=== PATIENT | female | born 1950 | race Caucasian/White ===

== ENCOUNTER 2018-06-16 17:07 | Inpatient (IN) ==
[2018-06-16] MEDS ORDERED: LANOXIN IV ONE (17:15)
[2018-06-16 18:01] LABS: HEMATOCRIT 39.2 % (37.0-47.0); HEMOGLOBIN 12.9 g/dL (12.0-16.0); MCH 30.6 PG (27-31); MCHC 32.9 g/dL (33-37); MCV 92.9 FL (81-99); MPV 10.7 FL (7.4-10.4); RBC 4.22 XMIL (4.2-5.4); RDW 14.1 % (11.5-14.5); WBC 8.09 X1000 (4.8-10.8)
[2018-06-16 18:08] LABS: INR 1.02; PROTIME 14.3 Seconds (11.0-16.0)
[2018-06-16 18:23] LABS: AGAP 14; ALB/GLOB RATIO 1.7; ALBUMIN 3.8 g/dL (3.5-5.0); ALKALINE PHOSPHATASE 86 U/L (32-104); BUN 12 mg/dL (8-22); CALCIUM 8.6 mg/dL (8.8-10.2); CHLORIDE 107 mmol/L (98-107); CK PROFILE 55 U/L (24-173); COSMO 285; CREATININE 0.7 mg/dL (0.5-0.9); ESTIMATED GFR > 60; GLUCOSE 96 mg/dL (70-104); GOT 33 U/L (10-30); GPT 37 U/L (10-36); MAGNESIUM 1.7 mg/dL (1.5-2.7); POTASSIUM 3.5 mmol/L (3.5-5.1); SODIUM 143 mmol/L (136-145); TCO2 22 mmol/L (25-35); TOTAL BILIRUBIN 1.75 mg/dL (0.20-1.00); TOTAL PROTEIN 6.1 g/dL (6.3-8.3)
[2018-06-16] MEDS: ELIQUIS PO SCH ×3 (19:26→22:48)
[2018-06-16] MEDS: CARDIZEM PO SCH (19:26)
[2018-06-16] MEDS: ATIVAN IV PRN (19:27)
--- NOTE | 2018-06-16 19:36 | Diag Imaging Result Doc PS360 ---
EXAM: CHEST-2 VIEWS HISTORY: SOB TECHNIQUE: Chest two views COMPARISON: None. FINDINGS: The lungs are well expanded. The heart is mildly enlarged. There is pulmonary edema. No consolidation. Trace pleural fluid. IMPRESSION: Findings consistent with congestive failure. Electronically signed by Matt Snider 06/16/2018 7:35 PM
--- NOTE | 2018-06-16 21:20 | HISTORY AND PHYSICAL ---
CHIEF COMPLAINT: Shortness of breath, cough, wheezing, nausea for the last 1 week. HISTORY OF PRESENT ILLNESS: She is 67-year-old, pleasant, white female who came into the office with above symptoms. Heart rate is very irregular, somewhat new. EKG shows atrial flutter with rapid ventricular response. Chest x-ray, cardiomegaly with CHF. Admitted in [facility]. Discussed with Dr. Whitehead. She also has swelling of feet. Apparently all the symptoms was started after stopping the hormone treatment for breast cancer, exemestane. PAST MEDICAL HISTORY: Aortic stenosis due to bicuspid aortic valve, bladder cancer in remission, breast cancer on the right side status post local excision, ductal carcinoma in situ followed by hormonal treatment, metabolic syndrome, hypertension, osteopenia, posttraumatic stress disorder. PAST SURGICAL HISTORY: Radical cystectomy with Tiera pouch, appendectomy, cholecystectomy, complete hysterectomy. MEDICATIONS: Coreg 3.125 p.o. b.i.d., recently stopped exemestane 25 mg once daily, ibandronate sodium 150 mg once a month, Lexapro 20 mg daily, Zofran as needed. ALLERGIES: Not known. SOCIAL HISTORY: . Two kids. Lives in [place]. No smoking. No alcohol. FAMILY HISTORY: Father of MD at 68. Mom of lymphoma cancer. HEALTH SCREENING: Refused. Last mammography March 2016. Pap smear complete hysterectomy. Colonoscopy November 2015 at [place] with hyperplastic polyps. REVIEW OF SYSTEMS: HEENT: No headache. No vision problem. No earache. No sore throat. Cardiopulmonary: No chest pain. Shortness of breath, cough, wheezing, palpitations, swelling of feet. GI: History of nausea. No abdominal pain. : Had [place] pouch, self catheterization. No lumps in the breast. Extremities: Swelling of feet. Neurologic: No neurological symptoms or weakness. PHYSICAL EXAMINATION: VITAL SIGNS: Temperature is 98 degrees, heart rate is 150, blood pressure is running high, 5 feet 2, 210 pounds, room air 94%. HEENT: Atraumatic, normocephalic. Pupils equal, react to light. TMs are normal. Nose and throat within normal limits. NECK: Supple. No lymphadenopathy. CHEST: Bilateral wheezing. HEART: Sounds very erratic. ABDOMEN: Belly is soft, obese, nontender. [place] pouch seen with granulation tissue. EXTREMITIES: 1+ pedal edema. NEUROLOGIC: No obvious neurological deficits noted. INVESTIGATIONS: CBC is normal. PT/INR is normal. SMA 7 is normal. Calcium 8.6, magnesium 1.7. LFTs were slightly elevated. ProBNP 896. Cardiac enzymes, thyroid function tests were normal. Chest x-ray, cardiomegaly, mild CHF. EKG in my office revealed atrial flutter and fibrillation. ASSESSMENT AND PLAN: 1. A 67-year-old white female admitted to the hospital with decompensated diastolic heart failure with underlying aortic stenosis presumed to be bicuspid along with atrial fibrillation new onset. Plan is to CIC, IV digoxin, Cardizem. 2. Vitamin D3 deficiency, on replacement therapy. 3. Anxiety and depression. We will use the Lexapro and Ativan as needed. 4. Consult with crusher foreman. 5. History of bladder cancer in remission. 6. History of right breast cancer in remission, off hormone treatment. 7. Osteopenia, on Actonel. 8. Hypertension, on Coreg 3.125 p.o. b.i.d. Peak velocity of aortic valve 2.29 cm. LV function is 70%. Appears to be bicuspid eccentric regurgitation. Discussed with Dr. Whitehead. We will follow up. cc: Rosendo Estrella MD
[2018-06-17] MEDS: CARDIZEM PO SCH ×4 (01:05→20:43)
--- NOTE | 2018-06-17 07:27 | EKG Report ---
Test Performed on : 06/17/2018 06:46:40 AM Test Reason : atrial flutter Blood Pressure : / mmHG Vent. Rate : 104 BPM Atrial Rate : 357 BPM P-R Int : 000 ms QRS Dur : 072 ms QT Int : 346 ms P-R-T Axes : 000 038 066 degrees QTc Int : 454 ms Atrial fibrillation. with rapid ventricular response. Possible Anterior infarct (cited on or before 01-SEP-2014) Abnormal ECG When compared with ECG of 16-JUN-2018 16:51, (Unconfirmed) No significant change was found Confirmed by Edyta MANE, Conrteras Mcclendon ([id number]) on 06/20/2018 7:12:36 AM
--- NOTE | 2018-06-17 07:36 | EKG Report ---
Test Performed on : 06/16/2018 4:51:01 PM Test Reason : chest pain Blood Pressure : / mmHG Vent. Rate : 154 BPM Atrial Rate : 197 BPM P-R Int : 000 ms QRS Dur : 072 ms QT Int : 300 ms P-R-T Axes : 000 045 024 degrees QTc Int : 480 ms Atrial fibrillation. with rapid ventricular response. Possible Anteroseptal infarct (cited on or before 01-SEP-2014) Abnormal ECG When compared with ECG of 01-SEP-2014 15:51, Atrial fibrillation. has replaced Sinus rhythm. Vent. rate has increased BY 75 BPM Questionable change in initial forces of Anteroseptal leads Confirmed by Edyta MANE, Contreras Mcclendon ([id number]) on 06/17/2018 11:01:41 AM
--- NOTE | 2018-06-17 08:55 | CARDIOLOGY CONSULTATION ---
DATE: 06/17/2018 CHIEF COMPLAINT: Palpitations, shortness of breath, swelling. HISTORY: Ms. Altamirano is a 67-year-old female who presented to 's office, about 10 days in the office, complaining of nausea and vomiting. The patient stated back then that she had discontinued her hormonal blocking therapy prescribed by [facility] for management of breast cancer. The patient at that time was suspected to be dehydrated and was managed conservatively. Then she represented again yesterday with complaints of feeling weak, fatigued, exhausted and having some palpitations. Dr. Estrella noted that the patient was tachycardic with an irregular heartbeat, diagnosed atrial fibrillation with rapid response and recommended admission to the hospital. The patient at this time has been given IV Digoxin one time and has been placed on IV Digoxin once a day and apixaban 5 mg twice a day and Diltiazem 60 every 6 hours. Her EKG this morning shows atrial fibrillation, rate is 104 beats per minute with no ischemic changes. The patient denies having chest pain. PAST HISTORY: Positive for tachycardia for many years. The patient says that she has been found to have some valve disease. She mentions leaky valve, mitral valve prolapse. She says that she had scarlet fever as a child. She does have hypertension. She has posttraumatic stress disorder. SURGICAL HISTORY: She has had radical cystectomy with reconstruction of the urinary tract and an ostomy in 1995 or 1996. She said that was a very traumatic experience. She has had appendectomy, cholecystectomy. She has had hysterectomy. She has been diagnosed with breast cancer and she is being followed by [facility]. She had been taking hormonal blocking agents until recently. ALLERGIES: She has no allergies. SOCIAL HISTORY: She is . She has had 2 children, ages 37 and 40. She has been for 45 years. 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 Neither a smoker or a drinker. FAMILY HISTORY: Father had myocardial infarction. Mother had a stroke. REVIEW OF SYSTEMS: The patient does snore. She does have episodes of apnea at night when she sleeps. Her is familiar with the diagnosis of sleep apnea syndrome. No other major positives. HOME MEDICATIONS: At the time of this dictation included 1. Calcium carbonate. 2. Carvedilol 3.125 twice a day. 3. Cholecalciferol 1000 units daily. 4. Lexapro 20 mg daily. 5. Boniva 1 tablet as directed. PHYSICAL EXAMINATION: VITAL SIGNS: Blood pressure 128/105, pulse 104, respirations 24, temperature 97.6 degrees. GENERAL: She is awake, alert, oriented, no distress. Obese. HEENT: Unremarkable. CHEST: Diminished breath sounds diffusely without wheezes. HEART: Sounds are irregularly irregular. At this time, no gallop or murmur noted. ABDOMEN: Obese, nontender. EXTREMITIES: Show good pulses. No peripheral edema. NEUROLOGICAL: Follows commands. Moves 4 extremities. BLOOD WORK: Hemoglobin is 12.9, hematocrit 39.2, white cell count 8,090. PT 14.3. Sodium 143, potassium 3.5, BUN 12, creatinine 0.7. ProBNP 896 ng/mL. TSH is normal. Chest x- ray done yesterday showed findings consistent with congestive heart failure. Trace pleural fluid. IMPRESSION: 1. Patient presenting with atrial fibrillation and rapid ventricular response. This seems to be a new finding according to Dr. Estrella's office although patient states that she has had "tachycardia" for many years. 2. Morbid obesity. 3. Suspected to have sleep apnea syndrome. 4. Congestive heart failure probably diastolic dysfunction. 5. History of posttraumatic stress disorder with connection to her previous abdominal surgery. 6. She has a history of resection of bladder cancer and also has history of breast cancer. RECOMMENDATIONS: At this point in time, we will add Sotalol 80 mg twice a day. Continue Eliquis. We will see how she does over the next few days and if she does not convert spontaneously, we may consider TE cardioversion. I would request an echocardiogram for our records. The last echo was done by Dr. Estrella according to him about 2 months ago and it showed some abnormality. cc: MD Rosendo Funez MD [facility]
[2018-06-17] MEDS: CALTRATE 600 + D PO SCH (09:11)
[2018-06-17] MEDS: VITAMIN D PO SCH (09:11)
[2018-06-17] MEDS: LEXAPRO PO SCH (09:11)
[2018-06-17] MEDS: ELIQUIS PO SCH ×2 (09:12→20:43)
[2018-06-17] MEDS: BETAPACE PO SCH ×2 (09:12→20:43)
[2018-06-17] MEDS: ALDACTONE PO SCH (09:12)
[2018-06-17] MEDS: LANOXIN IV SCH (09:12)
[2018-06-17] MEDS ORDERED: ZOFRAN IV PRN (19:28)
[2018-06-18] MEDS: CARDIZEM PO SCH ×4 (02:40→20:12)
--- NOTE | 2018-06-18 05:28 | ECHO REPORT ---
ORDER DATE: 06/17/2018 INDICATION: Atrial fib. FINDINGS: 1. The right atrium appears normal size. 2. Trace tricuspid regurgitation and RV systolic pressure of 32. 3. Normal RV size and systolic function. 4. No significant pulmonic insufficiency. 5. Normal left atrial size with a dimension of 3.6 cm. 6. No mitral prolapse. Mild mitral regurgitation. 7. Normal LV size, end-diastolic dimension of 4.7 cm. Normal wall thicknesses with a posterior and interventricular septal wall thickness of 1.1 and 1.0 cm respectively. The patient appears to be in atrial fibrillation with rates in the 110s to 120s, making the ejection fraction estimate difficult, but it does appear to be greater than 55%. 8. Aortic valve opens well. No evidence of stenosis or insufficiency. 9. Aorta appears normal in visualized segments. 10. No pericardial effusion seen. cc: MD Anam Madrigal MD Jagan Reddy, MD
--- NOTE | 2018-06-18 06:44 | PROGRESS NOTE ---
DATE: 06/17/2018 SUBJECT: Appreciate Dr. Whitehead's consult. The patient is very anxious. Continues to have atrial fibrillation, shortness of breath, and swelling of feet. REVIEW OF SYSTEMS: None reported. OBJECTIVE: Vitals: Temperature is 98 degrees, pulse is 68, blood pressure is stable. 2 L nasal cannula 95%. HEENT: Within normal limits. Chest: Bilateral air entry, distant breath sounds. Heart: Irregular heartbeat. Abdomen: Soft, obese, nontender. Extremities: 1+ pedal edema. ASSESSMENT AND PLAN: 1. A 67-year-old white female admitted to the hospital with rapid atrial fibrillation, with diastolic heart failure. Plan is for sotalol 80 p.o. b.i.d., continue on Eliquis. 2. If fails to improve, we will consider ERMIAS and cardioversion. 3. Aortic stenosis, mild, at the bicuspid aortic valve. Discussed with Dr. Whitehead. Cardiac enzymes were negative. Normal thyroid function tests. We will continue to monitor. LEVEL OF DOCUMENTATION: 25 minutes. cc: Rosendo Estrella MD
--- NOTE | 2018-06-18 08:05 | EKG Report ---
Test Performed on : 06/18/2018 07:19:08 AM Test Reason : atrial fibrillation Blood Pressure : / mmHG Vent. Rate : 085 BPM Atrial Rate : 076 BPM P-R Int : 000 ms QRS Dur : 074 ms QT Int : 386 ms P-R-T Axes : 000 040 085 degrees QTc Int : 459 ms Atrial fibrillation. with a competing junctional pacemaker. Anteroseptal infarct (cited on or before 01-SEP-2014) Abnormal ECG When compared with ECG of 17-JUN-2018 06:46, (Unconfirmed) Questionable change in initial forces of Septal leads Confirmed by Edyta MANE, Contreras Mcclendon ([id number]) on 06/20/2018 10:17:54 AM
[2018-06-18] MEDS: ALDACTONE PO SCH (09:09)
[2018-06-18] MEDS: LEXAPRO PO SCH (09:09)
[2018-06-18] MEDS: ELIQUIS PO SCH ×2 (09:09→20:12)
[2018-06-18] MEDS: CALTRATE 600 + D PO SCH (09:09)
[2018-06-18] MEDS: VITAMIN D PO SCH (09:09)
[2018-06-18] MEDS: BETAPACE PO SCH ×2 (09:10→20:12)
[2018-06-18] MEDS: LANOXIN IV SCH (09:10)
[2018-06-18] MEDS: ATIVAN IV PRN ×2 (09:18→20:12)
--- NOTE | 2018-06-18 09:37 | CARDIOLOGY PROGRESS NOTE ---
DATE: 06/18/2018 CHIEF COMPLAINT: Irregular heartbeat, shortness of breath. SUBJECTIVE: Mrs. Altamirano feels better today. She is up and about. Her heart rate is better controlled on current medicines. She denies having any chest pain. OBJECTIVE: Vital signs: Blood pressure is 131/61, temperature 97.6, pulse 72, respirations 15. General: She is awake, alert, in no distress. HEENT: Unremarkable. Chest: Clear to auscultation and percussion. Cardiac: Heart sounds are irregularly irregular. Abdomen: Nontender. Extremities: Show no edema. Neurological: Moves all 4 extremities. BLOOD WORK: Has not been done today. IMPRESSION: 1. Patient who has atrial fibrillation, presumably of new onset, rapid response. 2. Suspect sleep apnea syndrome. 3. Morbid obesity, body mass index 44.4. 4. Hypertension. RECOMMENDATION: We will proceed with ERMIAS cardioversion in the morning. Benefits, risks, complications discussed. The patient understands that she has to be put to sleep and that we also need to check electrolytes in the morning prior to proceeding with the cardioversion. An echocardiogram was done yesterday, shows a normal ejection fraction of the left ventricle with no significant valvular abnormality. Will follow her along. cc: MD Rosendo Funez MD
[2018-06-19] MEDS: CARDIZEM PO SCH ×4 (03:02→21:00)
--- NOTE | 2018-06-19 04:52 | PROGRESS NOTE ---
DATE: 06/18/2018 SUBJECTIVE: The patient is a little bit upset not getting the blood workup. She continues to have atrial fibrillation rate when controlled. Dr. Whitehead has scheduled for ERMIAS and cardioversion tomorrow. REVIEW OF SYSTEMS: None reported. OBJECTIVE: Vital signs: Temperature is 98 degrees. Vitals are stable. HEENT: Within normal limits. Neck: Supple. Chest: Clear. Heart: Distant heart sounds. Regular. Abdomen: Belly is soft and nontender. No deficits noted. ASSESSMENT AND PLAN: New onset of atrial flutter with underlying aortic valve disease with aortic stenosis, questionable bicuspid valve. Plan is ERMIAS and cardioversion. Continue on sotalol. Currently, rate control with digitalis, Cardizem and sotalol. Stroke prophylaxis with Eliquis with underlying comorbid conditions. Family agreed. I appreciated Dr. Whitehead consult. We will follow up. LEVEL OF DOCUMENTATION: 25 minutes. cc: Rosendo Estrella MD
[2018-06-19 06:37] LABS: AGAP 12; BUN 11 mg/dL (8-22); CALCIUM 8.8 mg/dL (8.8-10.2); CHLORIDE 106 mmol/L (98-107); COSMO 282; CREATININE 0.7 mg/dL (0.5-0.9); ESTIMATED GFR > 60; GLUCOSE 93 mg/dL (70-104); MAGNESIUM 1.7 mg/dL (1.5-2.7); POTASSIUM 3.8 mmol/L (3.5-5.1); SODIUM 142 mmol/L (136-145); TCO2 24 mmol/L (25-35)
[2018-06-19] MEDS: BETAPACE PO SCH ×3 (07:29→21:00)
[2018-06-19] MEDS: CALTRATE 600 + D PO SCH ×2 (07:29→12:20)
[2018-06-19] MEDS: LEXAPRO PO SCH ×2 (07:29→12:21)
[2018-06-19] MEDS: VITAMIN D PO SCH ×2 (07:29→12:20)
[2018-06-19] MEDS: ELIQUIS PO SCH ×3 (07:29→21:00)
[2018-06-19] MEDS: ALDACTONE PO SCH ×2 (07:29→12:19)
[2018-06-19] MEDS: ATIVAN IV PRN (07:31)
[2018-06-19] MEDS ORDERED: XYLOCAINE-MPF 2% ONE (08:00)
[2018-06-19] MEDS ORDERED: DIPRIVAN 1% ONE (08:00)
--- NOTE | 2018-06-19 08:13 | EKG Report ---
Test Performed on : 06/19/2018 07:31:37 AM Test Reason : atrial fibrillation Blood Pressure : / mmHG Vent. Rate : 097 BPM Atrial Rate : 100 BPM P-R Int : 000 ms QRS Dur : 082 ms QT Int : 374 ms P-R-T Axes : 000 053 015 degrees QTc Int : 474 ms Atrial fibrillation. Cannot rule out Anteroseptal infarct (cited on or before 01-SEP-2014) Abnormal ECG When compared with ECG of 18-JUN-2018 07:19, (Unconfirmed) No significant change was found Confirmed by Edyta MANE, Contreras Mcclendon ([id number]) on 06/20/2018 10:49:24 AM
[2018-06-19 08:56] LABS: INR 1.1; PROTIME 15.1 Seconds (11.0-16.0)
[2018-06-19 08:57] LABS: PTT 25.6 Seconds (22.3-41.8)
[2018-06-19] MEDS ORDERED: ANESTHESIA PB SET 88 IN 5742 ONE (11:20)
[2018-06-19] MEDS ORDERED: NS 1,000 ML ONE (11:20)
[2018-06-19] MEDS ORDERED: XYLOCAINE 4% TOPICAL SOLUTION ONE (11:25)
[2018-06-19] MEDS: LANOXIN IV SCH (12:21)
--- NOTE | 2018-06-19 14:04 | CARDIAC CATH REPORT ---
DATE: 06/19/2018 PROCEDURE PERFORMED: Direct current cardioversion. INDICATION: Persistent atrial fibrillation. HISTORY: Ms. Altamirano is a 67-year-old female who presented with atrial fibrillation. This is of uncertain duration. She was placed on anticoagulant, sotalol and Cardizem, and cardioversion was recommended. ERMIAS was performed prior to the cardioversion. DESCRIPTION OF PROCEDURE: The patient came into the cardiac labor relations analyst. She received IV anesthesia under the services of Dr. Johnson. ERMIAS was performed first, and that ruled out the presence of thrombus. The pads were positioned in anterior posterior location. The patient received a single synchronized countershock to the chest cage consisting of 75 esparza per second. She converted from atrial fibrillation into sinus rhythm. She woke up from the effects of anesthesia without deficit. During the recovery phase when the patient was already awake, there was a short run of atrial tachycardia. She remained in sinus rhythm. SUMMARY: This was a successful cardioversion from atrial fibrillation into sinus rhythm. One isolated episode of atrial tachycardia was documented. RECOMMENDATIONS: The patient will be kept on sotalol, and we will follow her clinically. cc: MD Rosendo Funez MD
--- NOTE | 2018-06-19 15:25 | Transesophageal Echocardiogram ---
DATE: 06/19/2018 INDICATION: Patient with atrial fibrillation of uncertain duration. Cardioversion was recommended. DESCRIPTION: The patient was brought to the [facility] after being consented. Her throat was anesthetized with HurriCaine and viscus lidocaine. She was given IV anesthesia under the service of Dr. Johnson. Once the patient was adequately sedated the esophagus was intubated without difficulty. Multiple views of the cardiac structure were obtained. SUMMARY OF MAIN FINDINGS: 1. The left atrium and the appendage were well visualized and free of thrombus. Flow velocity within the appendage was in the order of 30-40 cm/s. A mild degree of spontaneous echo contrast was noted. 2. There is evidence of an interatrial septal aneurysm. 3. In the most posterior cephalad portion of the interatrial septum there is a patent foramen ovale with bidirectional shunt. The shunt is predominantly from left to right. However , there are also some instances of right to left shunt and injection of agitated saline showed some crossing of the bubble from the right to the left. It was intermittent and of small degree . 4. The right atrium is normal. 5. The tricuspid valve is normal. Color flow mapping is unremarkable. 6. The right ventricle is normal. 7. The pulmonic valve is normal. 8. The aortic valve is abnormal. It has only 2 cusps. It is a bicuspid valve. Valve area about 1.6 cm2. Color flow mapping of the aortic valve shows no regurgitation. The aortic root is not dilated. 9. The left ventricle shows normal function with an ejection fraction of 55%. 10.Pulmonary venous flow is normal. 11.The ascending thoracic aorta shows no evidence of any significant plaque. 12.There is no evidence of pericardial effusion or masses. SUMMARY: In summary, this transesophageal echocardiogram is negative for the presence of thrombus. It shows the presence of a bicuspid aortic valve and also the presence of a patent foramen ovale with bidirectional shunt. The patient may proceed with cardioversion at a low risk of embolic event. cc: MD Rosendo Funez MD MTDD
--- NOTE | 2018-06-20 00:07 | PROGRESS NOTE ---
DATE: 06/19/2018 SUBJECTIVE: The patient is a little bit anxious. getting IV, waiting for ERMIAS and cardioversion. No complaints. PHYSICAL EXAMINATION: Vital signs: On examination, temperature is 97 degrees, pulse is still in atrial fibrillation. Chest: Poor respiratory effort. Abdomen: Belly is soft, nontender. Extremities: Trace edema. ASSESSMENT AND PLAN: 1. Chronic atrial fibrillation. Waiting for ERMIAS and cardioversion. 2. Bicuspid aortic valve. Follow up on ERMIAS report. 3. Anticoagulation with Eliquis. 4. Consider sleep studies down the line. Waiting for the IV access prior to the ERMIAS and cardioversion. I appreciate Dr. Whitehead's consult. 5. Continue present medical therapy, and follow up on cardioversion. LEVEL OF DOCUMENTATION: 25 minutes. cc: Rosendo Estrella MD MTD[facility]
[2018-06-20] MEDS: CARDIZEM PO SCH ×2 (01:49→09:36)
[2018-06-20] MEDS: LEXAPRO PO SCH (09:36)
[2018-06-20] MEDS: ALDACTONE PO SCH (09:36)
[2018-06-20] MEDS: CALTRATE 600 + D PO SCH (09:36)
[2018-06-20] MEDS: ELIQUIS PO SCH (09:37)
[2018-06-20] MEDS: VITAMIN D PO SCH (09:37)
[2018-06-20] MEDS: LANOXIN IV SCH (09:37)
[2018-06-20] MEDS: BETAPACE PO SCH (09:37)
[2018-06-20] MEDS ORDERED: FLU VACCINE IM ONE (11:39)
[2018-06-20] MEDS ORDERED: PNEUMOVAX 23 IM ONE (11:39)
[2018-06-20 11:54] VITALS: BP 123/67
--- NOTE | 2018-06-21 04:39 | DISCHARGE SUMMARY ---
ADMISSION DATE: 06/16/2018 DISCHARGE DATE: 06/20/2018 DISCHARGING DIAGNOSIS: Acute decompensated diastolic heart failure due to atrial flutter and atrial fibrillation. SECONDARY DIAGNOSES: 1. Metabolic syndrome. 2. Bicuspid aortic valve disease. 3. Patent foramen ovale. 4. Bladder cancer, in remission, with an Holmes pouch. 5. Right breast cancer, status post local excision, followed by hormone treatment. 6. Hypertension. 7. Osteopenia. 8. Posttraumatic stress disorder. CONSULTS: Dr. Whitehead. PROCEDURES: 1. Transesophageal echocardiography, followed by 75 joules of cardioversion. 2. Transesophageal echocardiogram. LV function is normal. Bicuspid aortic valve without significant stenosis and also PFO noted. No evidence of thrombus noted. BRIEF HISTORY: Please see the H and P that was done on 06/16/2018. In brief, she is 67-year-old, pleasant, white female, basically admitted to the hospital from my office with palpitations, shortness of breath, wheezing, edema. Patient is in rapid atrial flutter. Monitored in telemetry. HOSPITAL COURSE: Patient was started on sotalol and digoxin and Cardizem for rate control. She failed to convert into sinus. Dr. Whitehead's consult appreciated. He did a cardioversion with 75 joules after the ERMIAS. Findings were discussed with the patient. Patient remained in sinus except atrial tachycardia. LABS: CBC: White cell count 8, hematocrit 39, platelets 183,000. PT 15, INR 1.1. SMA 7 is normal. LFTs slightly high. ProBNP 896. Cardiac enzymes and thyroid function tests were normal. Transesophageal echocardiogram findings are a bicuspid aortic valve, ejection fraction 55%, PFO with interatrial septal aneurysm noted. No evidence of thrombus. IMMUNIZATIONS: Flu vaccine 06/20/2018, pneumococcal vaccine 23 on 06/20/2018. DISCHARGE INSTRUCTIONS: 1. Discontinue carvedilol. 2. Vitamin D and calcium 1 tablet daily, Lexapro 20 daily, vitamin D 1000 units daily, Boniva 150 once a month, Eliquis 5 mg p.o. b.i.d., sotalol 80 p.o. b.i.d. 3. Follow up in my office in 10 days, as well as Dr. Whitehead. cc: Rosendo Estrella MD
--- NOTE | 2018-06-22 07:11 | EKG Report ---
Test Performed on : 06/20/2018 05:49:55 AM Test Reason : atrial fibrillation Blood Pressure : / mmHG Vent. Rate : 067 BPM Atrial Rate : 067 BPM P-R Int : 170 ms QRS Dur : 086 ms QT Int : 428 ms P-R-T Axes : 043 037 051 degrees QTc Int : 452 ms Sinus rhythm. with occasional premature ventricular complexes. Cannot rule out Anterior infarct (cited on or before 01-SEP-2014) Abnormal ECG When compared with ECG of 19-JUN-2018 07:31, (Unconfirmed) Sinus rhythm. has replaced Atrial fibrillation. Nonspecific T wave abnormality no longer evident in Inferior leads Nonspecific T wave abnormality, improved in Lateral leads Confirmed by Edyta MANE, Contreras Mcclendon ([id number]) on 06/22/2018 11:08:38 AM
== END 2018-06-20 13:13 | disposition home or self-care (01) | DRG 308 ==
LOC: 3S 18:42
PROVIDERS: ADMIT Internal Medicine; ATTEND Internal Medicine
CPT/HCPCS: 71020; 71046; 80048; 80053; 82550; 83735; 83880; 84439; 84443; 84484; 85027; 85610; 85730; 90686; 90732; 92960; 93005; 93010; 93306; 93312; 94761; 94799; A9270; C8929; J1160; J2060; J7030; Q9957